=== PATIENT | female | born 1980 | race Caucasian/White ===

== ENCOUNTER 2016-08-21 15:21 | Emergency (ER) | payer SELFPAY ==
[2016-08-21] MEDS ORDERED: ASPIRIN 81 MG CHEW TABLET As Ordered ONE (16:12)
[2016-08-21 16:22] LABS: BASO % 0.4 % (0.0-1.0); EOS # 0.2 K/mm3 (0.0-0.50); EOS % 1.9 % (0.0-3.0); LARGE UNSTAINED CELL # 0.1 K/mm3 (0.0-0.4); LARGE UNSTAINED CELL % 0.9 % (0.0-4.0); LYMPH # 1.5 K/mm3 (1.5-4.5); LYMPH % 14.8 % (24.0-44.0); MEAN CORPUSCULAR HEMOGLOBIN 31.1 pg (27.0-33.0); MEAN CORPUSCULAR VOLUME 94.2 fl (80.0-96.0); MONO # 0.4 K/mm3 (0.0-0.8); MONO % 4.2 % (0.0-5.0); NEUTROPHILS # 7.4 K/mm3 (1.8-7.7); NEUTROPHILS % 77.9 % (36.0-66.0); PLATELET COUNT, AUTOMATED 357 k/mm3 (150-450); RED CELL DISTRIBUTION WIDTH 12.4 % (11.5-14.5); WHITE BLOOD COUNT 9.5 K/mm3 (4.0-10.0)
[2016-08-21 16:29] LABS: ANION GAP 7 MEQ/L (8-16); BLOOD UREA NITROGEN 17 MG/DL (7-18); CALCIUM LEVEL 8.9 MG/DL (8.5-10.1); CARBON DIOXIDE LEVEL 27 MEQ/L (21-32); CHLORIDE LEVEL 106 MEQ/L (98-107); CREATININE FOR GFR 0.87 MG/DL (0.55-1.02); GLOMERULAR FILTRATION RATE > 60.0 (>60); GLUCOSE, FASTING 139 MG/DL (70-105); POTASSIUM SERUM 3.6 MEQ/L (3.5-5.1); SODIUM LEVEL 140 MEQ/L (136-145)
--- NOTE | 2016-08-21 16:37 | REP ---
Portable chest x-ray: Single view. History: Chest pain. Findings: The lungs are well inflated and clear. Pleural angles are sharp. Cardiomediastinal silhouette is unremarkable. EKG monitoring electrodes overlie the chest. No bony abnormality is seen. Impression: Negative portable chest x-ray. Signed by Emiliano Amador MD 08/21/2016 04:58 P
[2016-08-21] MEDS ORDERED: methylPREDNISolone INJ 125 MG/2 ML VIAL (J2930) As Ordered ONE ×3 (17:43→17:49)
[2016-08-21] MEDS ORDERED: ONDANSETRON 4MG/2ML VIAL (J2405) As Ordered ONE (17:43)
[2016-08-21] MEDS ORDERED: diphenhydrAMINE INJ 50MG/ML VIAL (J1200) As Ordered ONE (17:43)
[2016-08-21] MEDS ORDERED: FAMOTIDINE INJ 20MG/2ML VIAL (S0028) As Ordered ONE (17:44)
[2016-08-21] MEDS ORDERED: FAMOTIDINE/NS 20 MG/50 ML BAG (S0028) As Ordered ONE (17:44)
--- NOTE | 2016-08-21 21:33 | ECGEPIP ---
Stationary ECG Study [facility] - ED Test Date: 2016-08-21 Pat Name: YENNY ESCUDERO Department: Room: - Gender: F Youth Program Director: ct : 1980 Requested By: CRICKET Goodwin Order Number: [id number] Reading MD: Geovanna Madera Measurements Intervals [place] Rate: 86 P: 66 TN: 154 QRS: 63 QRSD: 82 T: 20 QT: 345 QTc: 413 Interpretive Statements SINUS RHYTHM NONSPECIFIC T-WAVE ABNORMALITY NO PRIOR FOR COMPARISON Electronically Signed On 08-21-2016 21:33:09 EST by Geovanna Madera
--- NOTE | 2016-08-21 21:40 | ECGEPIP ---
Stationary ECG Study [facility] - ED Test Date: 2016-08-21 Pat Name: YENNY ESCUDERO Department: Room: - Gender: F Well Digger: neal : 1980 Requested By: CRICKET Goodwin Order Number: [id number] Reading MD: Geovanna Madera Measurements Intervals [place] Rate: 72 P: 78 MN: 176 QRS: 70 QRSD: 77 T: 46 QT: 364 QTc: 400 Interpretive Statements SINUS RHYTHM NSTTW ABNORMALITY DECREASED RATE 15:51 Electronically Signed On 08-21-2016 21:40:46 EST by Geovanna Madera
--- NOTE | 2016-08-21 22:24 | EDDOCDS ---
Nurse's Notes [facility] Name: Yenny Escudero Age: 36 yrs Sex: Female : 1980 Arrival Date: 08/21/2016 Time: 15:21 Bed 14 Private MD: Diagnosis: Chest pain, unspecified-possible allergic reaction Presentation: 08/21 15:26 Presenting complaint: Patient states: Burning to mid chest up into throat starting ld5 around 1400. Walked to sink to get a drink of water and felt like she was going to pass out. Pain started to become sharp and had numbness to bilateral arms. Pt reports experiencing some "fluttering" to heart for last 2 weeks. Pt thought it could be due to attempting to quit smoking so didn't seek evaluation until now. Suicide/Homicide risk assessment- the patient denies having any suicidal and/or homicidal ideations and does not present with any other emotional, behavioral or mental health complaints. Status: Patient is not a retail service technician or dependent. Transition of care: patient was not received from another setting of care. Care prior to arrival: Glucose check. 168 Oxygen administered by EMS. 15:26 Acuity: ANJEL Level 3 ld5 15:26 Method Of Arrival: Ambulance ld5 15:31 Adult Sepsis Screening: The patient does not have new or worsening altered mentation. ld5 Patient's respiratory rate is less than 22. Systolic blood pressure is greater than 100. Patient has a qSOFA score of 0- Negative Sepsis Screen. Triage Assessment: 15:28 General: Appears in no apparent distress, Behavior is cooperative. Pain: Location: head ld5 Pain currently is 5 out of 10 on a pain scale. HIV screening NA for this visit Offered previously. Neurological: Level of Consciousness is awake, alert, obeys commands, Reports numbness to arms. Respiratory: Onset: The symptoms/episode began/occurred 1400 today, Reports shortness of breath at rest on exertion. GI: Reports episodes of nausea for last 2 weeks. TROUBLE LOCATOR TEST DESK: 15:33 3, Full Term 2, Premature 1, 0, Living 3, LMP 08/19/2016 ld5 Historical: - Allergies: no known allergies; - Home Meds: 1. none - PMHx: none; - PSHx: none; - Social history: Smoking status: Patient uses tobacco products, light tobacco smoker. No barriers to communication noted, The patient speaks fluent Danish, Speaks appropriately for age. - Family history: Not pertinent. - : The pt / caregiver states he / she is not on anticoagulants. Home medication list is obtained from the patient. - Exposure Risk Screening:: None identified. Screenin:06 Screening information is obtained from the patient. Fall risk: No risks identified. [facility] Assistance ADL's: requires no assistance with activities of daily living. Abuse/DV Screen: The patient / caregiver reports he/she is: not in a situation that causes fear, pain or injury. Nutritional screening: No deficits noted. Advance Directives: There is no active DNR order. home support is adequate. Assessment: 16:06 General: Appears in no apparent distress, comfortable, Behavior is appropriate for age, [facility] cooperative, pleasant. Pain: Location: right arm and left arm and head Pain currently is 4 out of 10 on a pain scale. Neurological: Level of Consciousness is awake, alert, Oriented to person, place, time. Cardiovascular: Chest pain is denied. Respiratory: Airway is patent Respiratory effort is even, unlabored, Respiratory pattern is regular, symmetrical, Breath sounds are clear bilaterally. Derm: Skin is pink, warm & dry. 16:43 General: Appears in no apparent distress. Neurological: Level of Consciousness is ld5 awake, alert. Respiratory: Airway is patent Respiratory effort is even, unlabored. 17:45 General: Appears in no apparent distress, comfortable, Behavior is appropriate for age, [facility] cooperative, pleasant, ambulates to bathroom with steady gait and no assist required, denies further needs at present. 18:19 General: medications provided, family at bedside, pleasant and cooperative, no visible [facility] distress. 19:30 General: IV infusing without difficulty, cooperative with redraws and EKG, family at [facility] bedside, denies further needs at present. 20:28 General: Appears in no apparent distress, comfortable, Behavior is appropriate for age, [facility] cooperative, denies pain at this time, states continues to feel a little light headed, states 'maybe because I'm just tired of laying here'. Awaiting test results. 21:45 General: Appears in no apparent distress, comfortable, Behavior is appropriate for age, [facility] cooperative, awaiting discharge. 22:18 General: Appears Behavior is patient denies pain or discomfort at this time, reviewed [facility] discharge instructions, encouraged and answered questions, declines offer of further assistance. Vital Signs: 15:30 BP 140 / 89; Pulse 107; Resp 20; Temp 97.5(TE); Pulse Ox 100% on 2 lpm NC; Weight 70.31 dem1 kg; Height 5 ft. 2 in. (157.48 cm); Pain 5/10; 15:47 Pulse 86 MON; Pulse Ox 97% ; cjh 15:48 BP 132 / 81 (auto/); cjh 15:59 Pulse 96 MON; Pulse Ox 95% ; cjh 15:59 BP 134 / 83 (auto/); cjh 16:16 BP 146 / 71 (auto/); ld5 16:46 Pulse 78 MON; Pulse Ox 97% ; cjh 16:46 BP 122 / 71 (auto/); cjh 17:49 BP 114 / 62 Supine; Pulse 74; ld5 17:49 BP 120 / 76 Sitting; Pulse 82; ld5 17:49 BP 138 / 80 Standing; Pulse 87; ld5 18:15 Pulse 74 MON; Pulse Ox 99% ; cjh 18:15 BP 127 / 73; Pulse 76; Resp 16; Temp 97.1; Pulse Ox 96% ; Pain 0/10; cjh 18:16 BP 119 / 66 (auto/); cjh 18:45 Pulse 74 MON; Pulse Ox 99% ; cjh 18:46 BP 121 / 67 (auto/); cjh 19:15 Pulse 74 MON; Pulse Ox 97% ; cjh 19:16 BP 128 / 75 (auto/); cjh 19:45 Pulse 64 MON; Pulse Ox 97% ; cjh 19:46 BP 132 / 77 (auto/); cjh 20:15 Pulse 64 MON; Pulse Ox 97% ; cjh 20:16 BP 133 / 80 (auto/); cjh 20:46 Pulse 70 MON; Pulse Ox 96% ; cjh 20:46 BP 127 / 76 (auto/); cjh 21:15 Pulse 70 MON; Pulse Ox 96% ; cjh 21:16 BP 124 / 70 (auto/); cjh 21:46 Pulse 74 MON; Pulse Ox 96% ; cjh 21:46 BP 125 / 69 (auto/); cjh 21:48 Pulse 72 MON; Pulse Ox 97% ; cjh 22:05 BP 121 / 73 (auto/); cj 15:30 Body Mass Index 28.35 (70.31 kg, 157.48 cm) [facility] Vitals: 15:30 Log In Time N/A - ambulance arrival. [facility] ED Course: 15:22 Patient visited by Josi Emanuel, Technology Trainer. lbd 15:22 Patient moved to Waiting lbd 15:22 Patient moved to 14 lbd 15:28 Maria Guadalupe Dumont MD is Attending Physician. fg 15:28 Triage Initiated ld5 15:31 Patient visited by Destiny Cochran. dem1 15:31 Pt greeted and oriented to ED. Patient advised of names of staff involved in care, [facility] location of call [place], wait times and NPO status. Patient has correct armband on for positive identification. Placed in gown. Bed in low position. Side rails up X2. roof slater on. Pulse ox on. NIBP on. 15:35 Patient visited by Payal Patino RN. ld5 15:55 EKG done. (by ED staff). Reviewed by Maria Guadalupe Dumont MD. ct3 15:56 Patient visited by Kasie Rasheed PCA. ct3 16:01 Patient visited by Maria Guadalupe Dumont MD. fg 16:06 The patient / caregiver is instructed regarding the plan of care and ED course. cjh 16:06 Inserted saline lock: 20 gauge in left antecubital area and blood collected. [facility] 16:39 [facility] Payment Agreement was scanned into [facility] and attached to record. gjb 16:45 Patient visited by Payal Patino RN. ld5 16:46 portable chest Returned. EDMS 17:46 Patient visited by Maria Guadalupe Dumont MD. fg 18:15 Discontinued lock intact, bleeding controlled, pressure dressing applied, No cj redness/swelling at site. No procedures done that require assistance. 18:20 Patient visited by Iliana Mcnulty,CARISSA. cj 18:57 Patient visited by Iliana Mcnulty,CARISSA. cj 19:29 Patient visited by Cornelio Gruber PCA. jmv 19:29 EKG done. (by ED staff). Reviewed by Gerry Pastrana DO. jmv 20:15 Attending Physician role handed off by Maria Guadalupe Dumont MD mm11 20:15 Gerry Pastrana DO is Attending Physician. mm11 20:15 Patient visited by Gerry Pastrana DO. mm11 21:17 Patient visited by Gerry Pastrana DO. mm11 22:00 [facility] is Referral Physician. mm11 22:02 Soy Celeste MD is Referral Physician. mm11 22:17 EKG-ADULT Returned. EDMS 22:17 ECG WITH READING ER PHYS Returned. EDMS Administered Medications: 16:18 Drug: Aspirin 324 mg [aspirin 81 mg chewable tablet (4 tabs)] Route: PO; [facility] 18:15 Drug: NS 0.9% 1000 ml Route: IV; Rate: bolus; Site: left antecubital; [facility] 18:17 Drug: Ondansetron 4 mg Route: IVP; Site: left antecubital; [facility] 18:17 Drug: Solu-MEDROL 125 mg [Solu-Medrol 500 mg intravenous solution (125 mg)] Route: IVP; cjh Site: left antecubital; 18:17 Drug: Famotidine 20 mg [famotidine 10 mg/mL intravenous solution] Route: IVPB; Infused cj Over: 30 mins; Site: left antecubital; 18:18 Drug: diphenhydrAMINE 25 mg [diphenhydramine 50 mg/mL injection solution (0.5 mL)] cj Route: IVP; Site: left antecubital; Order Results: Lab Order: Basic Metabolic Profile; SPEC'M 08/21/16 15:49 Test: GLUCOSE, FASTING; Value: 139; Range: 70-105; Abnormal: Above high normal; Units: MG/DL; Status: F Test: BLOOD UREA NITROGEN; Value: 17; Range: 7-18; Units: MG/DL; Status: F Test: CREATININE FOR GFR; Value: 0.87; Range: 0.55-1.02; Units: MG/DL; Status: F Test: GLOMERULAR FILTRATION RATE; Value: > 60.0; Range: >60; Status: F Test: SODIUM LEVEL; Value: 140; Range: 136-145; Units: MEQ/L; Status: F Test: POTASSIUM SERUM; Value: 3.6; Range: 3.5-5.1; Units: MEQ/L; Status: F Test: CHLORIDE LEVEL; Value: 106; Range: 98-107; Units: MEQ/L; Status: F Test: CARBON DIOXIDE LEVEL; Value: 27; Range: 21-32; Units: MEQ/L; Status: F Test: ANION GAP; Value: 7; Range: 8-16; Abnormal: Below low normal; Units: MEQ/L; Status: F Test: CALCIUM LEVEL; Value: 8.9; Range: 8.5-10.1; Units: MG/DL; Status: F Test Note: ; Units are mL/min/1.73 m2 Chronic Kidney Disease Staging per NKF: Stage I & II GFR >=60 Normal to Mildly Decreased Stage III GFR 30-59 Moderately Decreased Stage IV GFR 15-29 Severely Decreased Stage V GFR <15 Very Little GFR Left ESRD GFR <15 on RV REPAIR TECHNICIAN Lab Order: CBC with Diff; SPEC'M 08/21/16 15:49 Test: WHITE BLOOD COUNT; Value: 9.5; Range: 4.0-10.0; Units: K/mm3; Status: F Test: RED BLOOD COUNT; Value: 4.31; Range: 4.00-5.40; Units: M/mm3; Status: F Test: HEMOGLOBIN; Value: 13.4; Range: 12.0-16.0; Units: g/dl; Status: F Test: HEMATOCRIT; Value: 40.7; Range: 36.0-47.0; Units: %; Status: F Test: MEAN CORPUSCULAR VOLUME; Value: 94.2; Range: 80.0-96.0; Units: fl; Status: F Test: MEAN CORPUSCULAR HEMOGLOBIN; Value: 31.1; Range: 27.0-33.0; Units: pg; Status: F Test: MEAN CORPUSCULAR HGB CONC; Value: 33.0; Range: 32.0-36.5; Units: g/dl; Status: F Test: RED CELL DISTRIBUTION WIDTH; Value: 12.4; Range: 11.5-14.5; Units: %; Status: F Test: PLATELET COUNT, AUTOMATED; Value: 357; Range: 150-450; Units: k/mm3; Status: F Test: NEUTROPHILS %; Value: 77.9; Range: 36.0-66.0; Abnormal: Above high normal; Units: %; Status: F Test: LYMPH %; Value: 14.8; Range: 24.0-44.0; Abnormal: Below low normal; Units: %; Status: F Test: MONO %; Value: 4.2; Range: 0.0-5.0; Units: %; Status: F Test: EOS %; Value: 1.9; Range: 0.0-3.0; Units: %; Status: F Test: BASO %; Value: 0.4; Range: 0.0-1.0; Units: %; Status: F Test: LARGE UNSTAINED CELL %; Value: 0.9; Range: 0.0-4.0; Units: %; Status: F Test: NEUTROPHILS #; Value: 7.4; Range: 1.8-7.7; Units: K/mm3; Status: F Test: LYMPH #; Value: 1.5; Range: 1.5-4.5; Units: K/mm3; Status: F Test: MONO #; Value: 0.4; Range: 0.0-0.8; Units: K/mm3; Status: F Test: EOS #; Value: 0.2; Range: 0.0-0.50; Units: K/mm3; Status: F Test: BASO #; Value: 0.0; Range: 0.0-0.2; Units: K/mm3; Status: F Test: LARGE UNSTAINED CELL #; Value: 0.1; Range: 0.0-0.4; Units: K/mm3; Status: F Lab Order: Cardiac Injury Profile; SPEC'M 08/21/16 15:49 Test: CPK CREATINE PHOSPHOKINASE; Value: 131; Range: 26-192; Units: U/L; Status: F Test: CK-MB VALUE MASS; Value: 1.4; Range: 0.0-3.6; Units: NG/ML; Status: F Test: MB/CK RELATIVE INDEX; Value: 1.06; Range: < OR =4; Status: F Test Note: ; DIAGNOSIS CRITERIA MMB ng/ml Relative Index (RI) NON-AMI < or = 5 N/A BOWEN ZONE > 5 < or = 4 AMI > 5 > 4 Lab Order: Troponin; SPEC'M 08/21/16 15:49 Test: TROPONIN I; Value: < 0.02; Range: < 0.10; Units: NG/ML; Status: F Test Note: ; Troponin I Reference Interval for Siemens [place] LOCI: 99th Percentile= 0.00-0.045 ng/ml Risk Stratification: <= 0.10 ng/ml Decreased Risk for Adverse Clinical Events. 0.10-1.50 ng/ml Increased Risk for Adverse Clinical Events. Evaluation of additional criterion and/or repeat testing in 2-6 hours is suggested to rule out myocardial damage. >= 1.50 ng/ml Indicative of Myocardial Injury. Lab Order: Cardiac Marker Panel: 1900; SPEC'M 08/21/16 19:20 Test: CPK CREATINE PHOSPHOKINASE; Value: 115; Range: 26-192; Units: U/L; Status: F Test: CK-MB VALUE MASS; Value: 1.5; Range: 0.0-3.6; Units: NG/ML; Status: F Test: MB/CK RELATIVE INDEX; Value: 1.30; Range: < OR =4; Status: F Test: TROPONIN I; Value: < 0.02; Range: < 0.10; Units: NG/ML; Status: F Test Note: ; DIAGNOSIS CRITERIA MMB ng/ml Relative Index (RI) NON-AMI < or = 5 N/A BOWEN ZONE > 5 < or = 4 AMI > 5 > 4 Radiology Order: EKG-ADULT Test: EKG-ADULT REASON FOR EXAMINATION: Chest Pain; Stationary ECG Study; [facility] - ED; ; Test Date: 2016-08-21; Pat Name: YENNY ESCUDERO Department:; Room: -; Gender: F Special Education Coordinator: ct; : 1980 Requested By: MARIA GUADALUPE Goodwin; Order Number: [id number] Reading MD: Geovanna Madera; Measurements; Intervals [place]; Rate: 86 P: 66; AK: 154 QRS: 63; QRSD: 82 T: 20; QT: 345; QTc: 413; Interpretive Statements; SINUS RHYTHM; NONSPECIFIC T-WAVE ABNORMALITY; NO PRIOR FOR COMPARISON; Electronically Signed On 08-21-2016 21:33:09 EST by Geovanna Madera; Radiology Order: portable chest Test: portable chest REASON FOR EXAMINATION: Chest Pain; Portable chest x-ray: Single view.; ; History: Chest pain.; ; Findings: The lungs are well inflated and clear. Pleural angles are sharp.; Cardiomediastinal silhouette is unremarkable. EKG monitoring electrodes overlie; the chest. No bony abnormality is seen.; ; Impression:; ; Negative portable chest x-ray.; ; ; Signed by; Emiliano Amador MD 08/21/2016 04:58 P; Radiology Order: ECG WITH READING ER PHYS Test: ECG WITH READING ER PHYS REASON FOR EXAMINATION: SHORTNESS OF BREATH(REPEAT EKG AT 1900); Stationary ECG Study; [facility] - ED; ; Test Date: 2016-08-21; Pat Name: YENNY ESCUDERO Department:; Room: -; Gender: F Special Education Coordinator: neal; : 1980 Requested By: MARIA GUADALUPE Goodwin; Order Number: [id number] Reading MD: Geovanna Madera; Measurements; Intervals [place]; Rate: 72 P: 78; AK: 176 QRS: 70; QRSD: 77 T: 46; QT: 364; QTc: 400; Interpretive Statements; SINUS RHYTHM; NSTTW ABNORMALITY; DECREASED RATE 15:51; Electronically Signed On 08-21-2016 21:40:46 EST by Geovanna Madera; Outcome: 18:15 Discharge Assessment: Patient awake, alert and oriented x 3. No cognitive and/or [facility] functional deficits noted. Patient verbalized understanding of disposition instructions. patient administered narcotics - no. The following High Risk Discharge criteria are identified: None. Discharged to home ambulatory, with family. Condition: good Condition: stable Condition: improved. Discharge instructions given to patient, Instructed on discharge instructions, follow up and referral plans. medication usage, Demonstrated understanding of instructions, medications, Pt was receptive of discharge instructions/ teaching. Prescriptions given X 1. No special radiology studies were completed. Property :Personal belongings accompany Pt. 22:01 Discharge ordered by Provider. mm11 22:23 Patient left the ED. [facility] Signatures: Dispatcher [employer] EDMS Josi Emanuel, Technology Trainer Unit Gerry Powell DO DO mm11 Payal Patino,RN RN ld5 Kasie Rasheed, INFORMATION SYSTEMS SECURITY SPECIALIST INFORMATION SYSTEMS SECURITY SPECIALIST ct3 Destiny Cochran dem1 Iliana Mcnulty RN RN [facility] Maria Guadalupe Dumont MD MD fg Beck, Gabriela gjb Vega, Jose, INFORMATION SYSTEMS SECURITY SPECIALIST INFORMATION SYSTEMS SECURITY SPECIALIST jmv Corrections: (The following items were deleted from the chart) 15:33 15:26 Presenting complaint: Patient states: Burning to mid chest up into throat ld5 starting around 1400. Walked to sink to get a drink of water and felt like she was going to pass out. Pain started to become sharp and had numbness to bilateral arms ld5 18:19 17:45 General: Appears in no apparent distress, comfortable, Behavior is appropriate [facility] for age, cooperative, pleasant, ambulates to bathroom with steady gait and no assist required, medications provided, denies further needs at present. [facility] 22:23 18:15 Discharge Assessment: Patient awake, alert and oriented x 3. No cognitive and/or [facility] functional deficits noted. Patient verbalized understanding of disposition instructions. patient administered narcotics - yes. Pt provided with safe discharge [facility] MTDD
--- NOTE | 2016-08-21 22:24 | EDDOCDS ---
Physician Documentation [facility] Name: Gwen Calles Age: 36 yrs Sex: Female : 1980 Arrival Date: 08/21/2016 Time: 15:21 Bed 14 Private MD: Disposition: 08/21/16 22:01 Discharged to Home/Self Care. Impression: Chest pain, unspecified - possible allergic reaction. - Condition is Stable. - Discharge Instructions: Panic Attacks, Chest Wall Pain, Food Allergy, Panic Attacks, Cwen-yo-Hyct, Food Allergy, Gffr-os-Cmry, Nonspecific Chest Pain. - Prescriptions for Prednisone 20 mg Oral Tablet - take 2 tablet by ORAL route once daily for 5 days; 10 tablet. - Medication Reconciliation, Local Pharmacy Hours form. - [facility] ; When: Call to arrange an appointment; Reason: Continuance of care. Follow up: Soy Celeste MD; When: Call to arrange an appointment; Reason: To establish care. - Problem is an acute exacerbation. - Symptoms are resolved. Historical: - Allergies: no known allergies; - Home Meds: 1. none - PMHx: none; - PSHx: none; - Social history: Smoking status: Patient uses tobacco products, light tobacco smoker. No barriers to communication noted, The patient speaks fluent Wallisian, Speaks appropriately for age. - Family history: Not pertinent. - : The pt / caregiver states he / she is not on anticoagulants. Home medication list is obtained from the patient. - Exposure Risk Screening:: None identified. BAG SEWER: 08/21 15:33 3, Full Term 2, Premature 1, 0, Living 3, LMP 08/19/2016 ld5 Vital Signs: 15:30 BP 140 / 89; Pulse 107; Resp 20; Temp 97.5(TE); Pulse Ox 100% on 2 lpm NC; Weight 70.31 dem1 kg / 155.01 lbs; Height 5 ft. 2 in. (157.48 cm); Pain 5/10; 15:47 Pulse 86 MON; Pulse Ox 97% ; cjh 15:48 BP 132 / 81 (auto/); cjh 15:59 Pulse 96 MON; Pulse Ox 95% ; cjh 15:59 BP 134 / 83 (auto/); cjh 16:16 BP 146 / 71 (auto/); ld5 16:46 Pulse 78 MON; Pulse Ox 97% ; cjh 16:46 BP 122 / 71 (auto/); cjh 17:49 BP 114 / 62 Supine; Pulse 74; ld5 17:49 BP 120 / 76 Sitting; Pulse 82; ld5 17:49 BP 138 / 80 Standing; Pulse 87; ld5 18:15 Pulse 74 MON; Pulse Ox 99% ; cjh 18:15 BP 127 / 73; Pulse 76; Resp 16; Temp 97.1; Pulse Ox 96% ; Pain 0/10; cjh 18:16 BP 119 / 66 (auto/); cjh 18:45 Pulse 74 MON; Pulse Ox 99% ; cjh 18:46 BP 121 / 67 (auto/); cjh 19:15 Pulse 74 MON; Pulse Ox 97% ; cjh 19:16 BP 128 / 75 (auto/); cjh 19:45 Pulse 64 MON; Pulse Ox 97% ; cjh 19:46 BP 132 / 77 (auto/); cjh 20:15 Pulse 64 MON; Pulse Ox 97% ; cjh 20:16 BP 133 / 80 (auto/); cjh 20:46 Pulse 70 MON; Pulse Ox 96% ; cjh 20:46 BP 127 / 76 (auto/); cjh 21:15 Pulse 70 MON; Pulse Ox 96% ; cjh 21:16 BP 124 / 70 (auto/); cjh 21:46 Pulse 74 MON; Pulse Ox 96% ; cjh 21:46 BP 125 / 69 (auto/); cjh 21:48 Pulse 72 MON; Pulse Ox 97% ; cjh 22:05 BP 121 / 73 (auto/); cjh 15:30 Body Mass Index 28.35 (70.31 kg, 157.48 cm) dem1 MDM: 15:36 ECG WITH READING ER PHYS+CARDIAG ordered. EDMS 16:10 Aspirin Chewable Tablet 324 mg PO once ordered. fg 16:10 Plant Buyer/Pulse Ox/q 30 min VS ordered. fg 16:10 IV Saline Lock ordered. fg 16:10 Rhythm Strip to chart ordered. fg 16:10 Undress patient appropriately for examination ordered. fg 16:12 portable chest Ordered. EDMS 16:12 Basic Metabolic Profile Ordered. EDMS 16:13 CBC with Diff Ordered. EDMS 16:13 Cardiac Injury Profile Ordered. EDMS 16:13 Troponin Ordered. EDMS 16:32 Financial registration complete. gjb 16:39 [facility] Payment Agreement was scanned into [employer] and attached to record. gjb 17:34 Repeat EKG (put time details section) ordered. fg 17:34 Cardiac Marker Panel: 1900 Ordered. EDMS 17:34 Troponin: 1900 Ordered. EDMS 17:37 NS 0.9% 1000 ml IV at bolus once ordered. fg 17:37 Strep Screen, Nursing ordered. fg 17:37 Ondansetron 4 mg IVP once ordered. fg 17:37 Orthostatic VS ordered. fg 17:37 Solu-MEDROL 125 mg IVP once ordered. fg 17:37 Famotidine 20 mg IVPB once over 30 mins; dilute in 50mL of NS ordered. fg 17:37 diphenhydrAMINE 25 mg IVP once ordered. fg 17:50 Repeat EKG (put time details section) complete. lbd 18:03 ECG WITH READING ER PHYS ordered. EDMS 18:18 GATS (NEGATIVE STREP SCREEN) Ordered. EDMS 21:16 Basic Metabolic Profile Reviewed. mm11 21:16 CBC with Diff Reviewed. mm11 21:16 Cardiac Injury Profile Reviewed. mm11 21:16 Troponin Reviewed. mm11 21:16 Cardiac Marker Panel: 1900 Reviewed. mm11 21:16 portable chest Reviewed. mm11 Administered Medications: 16:18 Drug: Aspirin 324 mg [aspirin 81 mg chewable tablet (4 tabs)] Route: PO; [facility] 18:15 Drug: NS 0.9% 1000 ml Route: IV; Rate: bolus; Site: left antecubital; [facility] 18:17 Drug: Ondansetron 4 mg Route: IVP; Site: left antecubital; [facility] 18:17 Drug: Solu-MEDROL 125 mg [Solu-Medrol 500 mg intravenous solution (125 mg)] Route: IVP; [facility] Site: left antecubital; 18:17 Drug: Famotidine 20 mg [famotidine 10 mg/mL intravenous solution] Route: IVPB; Infused cj Over: 30 mins; Site: left antecubital; 18:18 Drug: diphenhydrAMINE 25 mg [diphenhydramine 50 mg/mL injection solution (0.5 mL)] [facility] Route: IVP; Site: left antecubital; Signatures: Dispatcher [employer] EDMS Josi Emanuel, Transcription Coordinator Unit lbd Pastrana Gerry, DO mm11 Payal Patino,RN RN ld5 Iliana Mcnulty RN RN álvaro Maria Guadalupe Dumont MD MD fg Beck, Gabriela gjb The chart was reviewed and I authenticate all verbal orders and agree with the evaluation and treatment provided.Attachments: 16:39 [facility] Payment Agreement stephanie MTDD
--- NOTE | 2016-08-23 23:25 | EDDOCDS ---
Nurse's Notes [facility] Name: Yenny Escudero Age: 36 yrs Sex: Female : 1980 Arrival Date: 08/21/2016 Time: 15:21 Bed 14 Private MD: Diagnosis: Chest pain, unspecified-possible allergic reaction Presentation: 08/21 15:26 Presenting complaint: Patient states: Burning to mid chest up into throat starting ld5 around 1400. Walked to sink to get a drink of water and felt like she was going to pass out. Pain started to become sharp and had numbness to bilateral arms. Pt reports experiencing some "fluttering" to heart for last 2 weeks. Pt thought it could be due to attempting to quit smoking so didn't seek evaluation until now. Suicide/Homicide risk assessment- the patient denies having any suicidal and/or homicidal ideations and does not present with any other emotional, behavioral or mental health complaints. Status: Patient is not a support services coordinator or dependent. Transition of care: patient was not received from another setting of care. Care prior to arrival: Glucose check. 168 Oxygen administered by EMS. 15:26 Acuity: ANJEL Level 3 ld5 15:26 Method Of Arrival: Ambulance ld5 15:31 Adult Sepsis Screening: The patient does not have new or worsening altered mentation. ld5 Patient's respiratory rate is less than 22. Systolic blood pressure is greater than 100. Patient has a qSOFA score of 0- Negative Sepsis Screen. Triage Assessment: 15:28 General: Appears in no apparent distress, Behavior is cooperative. Pain: Location: head ld5 Pain currently is 5 out of 10 on a pain scale. HIV screening NA for this visit Offered previously. Neurological: Level of Consciousness is awake, alert, obeys commands, Reports numbness to arms. Respiratory: Onset: The symptoms/episode began/occurred 1400 today, Reports shortness of breath at rest on exertion. GI: Reports episodes of nausea for last 2 weeks. TURN SEWER: 15:33 3, Full Term 2, Premature 1, 0, Living 3, LMP 08/19/2016 ld5 Historical: - Allergies: no known allergies; - Home Meds: 1. none - PMHx: none; - PSHx: none; - Social history: Smoking status: Patient uses tobacco products, light tobacco smoker. No barriers to communication noted, The patient speaks fluent Swedish, Speaks appropriately for age. - Family history: Not pertinent. - : The pt / caregiver states he / she is not on anticoagulants. Home medication list is obtained from the patient. - Exposure Risk Screening:: None identified. Screenin:06 Screening information is obtained from the patient. Fall risk: No risks identified. [facility] Assistance ADL's: requires no assistance with activities of daily living. Abuse/DV Screen: The patient / caregiver reports he/she is: not in a situation that causes fear, pain or injury. Nutritional screening: No deficits noted. Advance Directives: There is no active DNR order. home support is adequate. Assessment: 16:06 General: Appears in no apparent distress, comfortable, Behavior is appropriate for age, [facility] cooperative, pleasant. Pain: Location: right arm and left arm and head Pain currently is 4 out of 10 on a pain scale. Neurological: Level of Consciousness is awake, alert, Oriented to person, place, time. Cardiovascular: Chest pain is denied. Respiratory: Airway is patent Respiratory effort is even, unlabored, Respiratory pattern is regular, symmetrical, Breath sounds are clear bilaterally. Derm: Skin is pink, warm & dry. 16:43 General: Appears in no apparent distress. Neurological: Level of Consciousness is ld5 awake, alert. Respiratory: Airway is patent Respiratory effort is even, unlabored. 17:45 General: Appears in no apparent distress, comfortable, Behavior is appropriate for age, [facility] cooperative, pleasant, ambulates to bathroom with steady gait and no assist required, denies further needs at present. 18:19 General: medications provided, family at bedside, pleasant and cooperative, no visible [facility] distress. 19:30 General: IV infusing without difficulty, cooperative with redraws and EKG, family at [facility] bedside, denies further needs at present. 20:28 General: Appears in no apparent distress, comfortable, Behavior is appropriate for age, [facility] cooperative, denies pain at this time, states continues to feel a little light headed, states 'maybe because I'm just tired of laying here'. Awaiting test results. 21:45 General: Appears in no apparent distress, comfortable, Behavior is appropriate for age, [facility] cooperative, awaiting discharge. 22:18 General: Appears Behavior is patient denies pain or discomfort at this time, reviewed [facility] discharge instructions, encouraged and answered questions, declines offer of further assistance. Vital Signs: 15:30 BP 140 / 89; Pulse 107; Resp 20; Temp 97.5(TE); Pulse Ox 100% on 2 lpm NC; Weight 70.31 dem1 kg; Height 5 ft. 2 in. (157.48 cm); Pain 5/10; 15:47 Pulse 86 MON; Pulse Ox 97% ; cjh 15:48 BP 132 / 81 (auto/); cjh 15:59 Pulse 96 MON; Pulse Ox 95% ; cjh 15:59 BP 134 / 83 (auto/); cjh 16:16 BP 146 / 71 (auto/); ld5 16:46 Pulse 78 MON; Pulse Ox 97% ; cjh 16:46 BP 122 / 71 (auto/); cjh 17:49 BP 114 / 62 Supine; Pulse 74; ld5 17:49 BP 120 / 76 Sitting; Pulse 82; ld5 17:49 BP 138 / 80 Standing; Pulse 87; ld5 18:15 Pulse 74 MON; Pulse Ox 99% ; cjh 18:15 BP 127 / 73; Pulse 76; Resp 16; Temp 97.1; Pulse Ox 96% ; Pain 0/10; cjh 18:16 BP 119 / 66 (auto/); cjh 18:45 Pulse 74 MON; Pulse Ox 99% ; cjh 18:46 BP 121 / 67 (auto/); cjh 19:15 Pulse 74 MON; Pulse Ox 97% ; cjh 19:16 BP 128 / 75 (auto/); cjh 19:45 Pulse 64 MON; Pulse Ox 97% ; cjh 19:46 BP 132 / 77 (auto/); cjh 20:15 Pulse 64 MON; Pulse Ox 97% ; cjh 20:16 BP 133 / 80 (auto/); cjh 20:46 Pulse 70 MON; Pulse Ox 96% ; cjh 20:46 BP 127 / 76 (auto/); cjh 21:15 Pulse 70 MON; Pulse Ox 96% ; cjh 21:16 BP 124 / 70 (auto/); cjh 21:46 Pulse 74 MON; Pulse Ox 96% ; cjh 21:46 BP 125 / 69 (auto/); cjh 21:48 Pulse 72 MON; Pulse Ox 97% ; cjh 22:05 BP 121 / 73 (auto/); cj 15:30 Body Mass Index 28.35 (70.31 kg, 157.48 cm) [facility] Vitals: 15:30 Log In Time N/A - ambulance arrival. [facility] ED Course: 15:22 Patient visited by Josi Emanuel, Bindery Helper. lbd 15:22 Patient moved to Waiting lbd 15:22 Patient moved to 14 lbd 15:28 Maria Guadalupe Dumont MD is Attending Physician. fg 15:28 Triage Initiated ld5 15:31 Patient visited by Destiny Cochran. dem1 15:31 Pt greeted and oriented to ED. Patient advised of names of staff involved in care, [facility] location of call co[place], wait times and NPO status. Patient has correct armband on for positive identification. Placed in gown. Bed in low position. Side rails up X2. stem setter on. Pulse ox on. NIBP on. 15:35 Patient visited by Payal Patino RN. ld5 15:55 EKG done. (by ED staff). Reviewed by Maria Guadalupe Dumont MD. ct3 15:56 Patient visited by Kasie Rasheed PCA. ct3 16:01 Patient visited by Maria Guadalupe Dumont MD. fg 16:06 The patient / caregiver is instructed regarding the plan of care and ED course. cjh 16:06 Inserted saline lock: 20 gauge in left antecubital area and blood collected. [facility] 16:39 [facility] Payment Agreement was scanned into [employer] and attached to record. gjb 16:45 Patient visited by Payal Patino RN. ld5 16:46 portable chest Returned. EDMS 17:46 Patient visited by Maria Guadalupe Dumont MD. fg 18:15 Discontinued lock intact, bleeding controlled, pressure dressing applied, No cj redness/swelling at site. No procedures done that require assistance. 18:20 Patient visited by Iliana Mcnulty,CARISSA. cj 18:57 Patient visited by Iliana Mcnulty,CARISSA. cj 19:29 Patient visited by Cornelio Gruber PCA. jmv 19:29 EKG done. (by ED staff). Reviewed by Gerry Pastrana DO. jmv 20:15 Attending Physician role handed off by Maria Guadalupe Dumont MD mm11 20:15 Gerry Pastrana DO is Attending Physician. mm11 20:15 Patient visited by Gerry Pastrana DO. mm11 21:17 Patient visited by Gerry Pastrana DO. mm11 22:00 [facility] is Referral Physician. mm11 22:02 Soy Celeste MD is Referral Physician. mm11 22:17 EKG-ADULT Returned. EDMS 22:17 ECG WITH READING ER PHYS Returned. EDMS 08/22 10:26 T-Sheet-- Draft Copy was scanned into [employer] and attached to record. gb 17:03 ECG/EKG was scanned into [employer] and attached to record. gb 17:35 PCR was scanned into [employer] and attached to record. Administered Medications: 08/21 16:18 Drug: Aspirin 324 mg [aspirin 81 mg chewable tablet (4 tabs)] Route: PO; [facility] 18:15 Drug: NS 0.9% 1000 ml Route: IV; Rate: bolus; Site: left antecubital; [facility] 18:17 Drug: Ondansetron 4 mg Route: IVP; Site: left antecubital; [facility] 18:17 Drug: Solu-MEDROL 125 mg [Solu-Medrol 500 mg intravenous solution (125 mg)] Route: IVP; [facility] Site: left antecubital; 18:17 Drug: Famotidine 20 mg [famotidine 10 mg/mL intravenous solution] Route: IVPB; Infused [facility] Over: 30 mins; Site: left antecubital; 18:18 Drug: diphenhydrAMINE 25 mg [diphenhydramine 50 mg/mL injection solution (0.5 mL)] [facility] Route: IVP; Site: left antecubital; Order Results: Lab Order: Basic Metabolic Profile; [facility] 08/21/16 15:49 Test: GLUCOSE, FASTING; Value: 139; Range: 70-105; Abnormal: Above high normal; Units: MG/DL; Status: F Test: BLOOD UREA NITROGEN; Value: 17; Range: 7-18; Units: MG/DL; Status: F Test: CREATININE FOR GFR; Value: 0.87; Range: 0.55-1.02; Units: MG/DL; Status: F Test: GLOMERULAR FILTRATION RATE; Value: > 60.0; Range: >60; Status: F Test: SODIUM LEVEL; Value: 140; Range: 136-145; Units: MEQ/L; Status: F Test: POTASSIUM SERUM; Value: 3.6; Range: 3.5-5.1; Units: MEQ/L; Status: F Test: CHLORIDE LEVEL; Value: 106; Range: 98-107; Units: MEQ/L; Status: F Test: CARBON DIOXIDE LEVEL; Value: 27; Range: 21-32; Units: MEQ/L; Status: F Test: ANION GAP; Value: 7; Range: 8-16; Abnormal: Below low normal; Units: MEQ/L; Status: F Test: CALCIUM LEVEL; Value: 8.9; Range: 8.5-10.1; Units: MG/DL; Status: F Test Note: ; Units are mL/min/1.73 m2 Chronic Kidney Disease Staging per NKF: Stage I & II GFR >=60 Normal to Mildly Decreased Stage III GFR 30-59 Moderately Decreased Stage IV GFR 15-29 Severely Decreased Stage V GFR <15 Very Little GFR Left ESRD GFR <15 on AUTOMOTIVE GENERAL MANAGER Lab Order: CBC with Diff; SPEC'M 08/21/16 15:49 Test: WHITE BLOOD COUNT; Value: 9.5; Range: 4.0-10.0; Units: K/mm3; Status: F Test: RED BLOOD COUNT; Value: 4.31; Range: 4.00-5.40; Units: M/mm3; Status: F Test: HEMOGLOBIN; Value: 13.4; Range: 12.0-16.0; Units: g/dl; Status: F Test: HEMATOCRIT; Value: 40.7; Range: 36.0-47.0; Units: %; Status: F Test: MEAN CORPUSCULAR VOLUME; Value: 94.2; Range: 80.0-96.0; Units: fl; Status: F Test: MEAN CORPUSCULAR HEMOGLOBIN; Value: 31.1; Range: 27.0-33.0; Units: pg; Status: F Test: MEAN CORPUSCULAR HGB CONC; Value: 33.0; Range: 32.0-36.5; Units: g/dl; Status: F Test: RED CELL DISTRIBUTION WIDTH; Value: 12.4; Range: 11.5-14.5; Units: %; Status: F Test: PLATELET COUNT, AUTOMATED; Value: 357; Range: 150-450; Units: k/mm3; Status: F Test: NEUTROPHILS %; Value: 77.9; Range: 36.0-66.0; Abnormal: Above high normal; Units: %; Status: F Test: LYMPH %; Value: 14.8; Range: 24.0-44.0; Abnormal: Below low normal; Units: %; Status: F Test: MONO %; Value: 4.2; Range: 0.0-5.0; Units: %; Status: F Test: EOS %; Value: 1.9; Range: 0.0-3.0; Units: %; Status: F Test: BASO %; Value: 0.4; Range: 0.0-1.0; Units: %; Status: F Test: LARGE UNSTAINED CELL %; Value: 0.9; Range: 0.0-4.0; Units: %; Status: F Test: NEUTROPHILS #; Value: 7.4; Range: 1.8-7.7; Units: K/mm3; Status: F Test: LYMPH #; Value: 1.5; Range: 1.5-4.5; Units: K/mm3; Status: F Test: MONO #; Value: 0.4; Range: 0.0-0.8; Units: K/mm3; Status: F Test: EOS #; Value: 0.2; Range: 0.0-0.50; Units: K/mm3; Status: F Test: BASO #; Value: 0.0; Range: 0.0-0.2; Units: K/mm3; Status: F Test: LARGE UNSTAINED CELL #; Value: 0.1; Range: 0.0-0.4; Units: K/mm3; Status: F Lab Order: Cardiac Injury Profile; SPEC'M 08/21/16 15:49 Test: CPK CREATINE PHOSPHOKINASE; Value: 131; Range: 26-192; Units: U/L; Status: F Test: CK-MB VALUE MASS; Value: 1.4; Range: 0.0-3.6; Units: NG/ML; Status: F Test: MB/CK RELATIVE INDEX; Value: 1.06; Range: < OR =4; Status: F Test Note: ; DIAGNOSIS CRITERIA MMB ng/ml Relative Index (RI) NON-AMI < or = 5 N/A BOWEN ZONE > 5 < or = 4 AMI > 5 > 4 Lab Order: Troponin; SPEC'M 08/21/16 15:49 Test: TROPONIN I; Value: < 0.02; Range: < 0.10; Units: NG/ML; Status: F Test Note: ; Troponin I Reference Interval for Siemens [place] LOCI: 99th Percentile= 0.00-0.045 ng/ml Risk Stratification: <= 0.10 ng/ml Decreased Risk for Adverse Clinical Events. 0.10-1.50 ng/ml Increased Risk for Adverse Clinical Events. Evaluation of additional criterion and/or repeat testing in 2-6 hours is suggested to rule out myocardial damage. >= 1.50 ng/ml Indicative of Myocardial Injury. Lab Order: Cardiac Marker Panel: 1900; SPEC'M 08/21/16 19:20 Test: CPK CREATINE PHOSPHOKINASE; Value: 115; Range: 26-192; Units: U/L; Status: F Test: CK-MB VALUE MASS; Value: 1.5; Range: 0.0-3.6; Units: NG/ML; Status: F Test: MB/CK RELATIVE INDEX; Value: 1.30; Range: < OR =4; Status: F Test: TROPONIN I; Value: < 0.02; Range: < 0.10; Units: NG/ML; Status: F Test Note: ; DIAGNOSIS CRITERIA MMB ng/ml Relative Index (RI) NON-AMI < or = 5 N/A BOWEN ZONE > 5 < or = 4 AMI > 5 > 4 Lab Order: GATS (NEGATIVE STREP SCREEN); SPEC'M 08/21/16 17:52 Test: GATS CULTURE (NEG STREP SCR); Value: GATS RESULT NEGATIVE FOR STREP PYOGENES (GROUP A); Status: F Test: GATS CULTURE (NEG STREP SCR); Value: <EXTERNAL COMMENT eCWMed> FULL REPORT IN LAB NOTES (eCW and Medent).; Status: F Radiology Order: EKG-ADULT Test: EKG-ADULT REASON FOR EXAMINATION: Chest Pain; Stationary ECG Study; [facility] - ED; ; Test Date: 2016-08-21; Pat Name: YENNY ESCUDERO Department:; Room: -; Gender: F [employer]: ct; : 1980 Requested By: MARIA GUADALUPE Goodwin; Order Number: [id number] Reading MD: Geovanna Madera; Measurements; Intervals [place]; Rate: 86 P: 66; AK: 154 QRS: 63; QRSD: 82 T: 20; QT: 345; QTc: 413; Interpretive Statements; SINUS RHYTHM; NONSPECIFIC T-WAVE ABNORMALITY; NO PRIOR FOR COMPARISON; Electronically Signed On 08-21-2016 21:33:09 EST by Geovanna Madera; Radiology Order: portable chest Test: portable chest REASON FOR EXAMINATION: Chest Pain; Portable chest x-ray: Single view.; ; History: Chest pain.; ; Findings: The lungs are well inflated and clear. Pleural angles are sharp.; Cardiomediastinal silhouette is unremarkable. EKG monitoring electrodes overlie; the chest. No bony abnormality is seen.; ; Impression:; ; Negative portable chest x-ray.; ; ; Signed by; Emiliano Amador MD 08/21/2016 04:58 P; Radiology Order: ECG WITH READING ER PHYS Test: ECG WITH READING ER PHYS REASON FOR EXAMINATION: SHORTNESS OF BREATH(REPEAT EKG AT 1900); Stationary ECG Study; [facility] - ED; ; Test Date: 2016-08-21; Pat Name: YENNY ESCUDERO Department:; Room: -; Gender: F [employer]: jv; : 1980 Requested By: MARIA GUADALUPE Goodwin; Order Number: [id number] Reading MD: Geovanna Madera; Measurements; Intervals [place]; Rate: 72 P: 78; AK: 176 QRS: 70; QRSD: 77 T: 46; QT: 364; QTc: 400; Interpretive Statements; SINUS RHYTHM; NSTTW ABNORMALITY; DECREASED RATE 15:51; Electronically Signed On 08-21-2016 21:40:46 EST by Geovanna Madera; Outcome: 18:15 Discharge Assessment: Patient awake, alert and oriented x 3. No cognitive and/or cjh functional deficits noted. Patient verbalized understanding of disposition instructions. patient administered narcotics - no. The following High Risk Discharge criteria are identified: None. Discharged to home ambulatory, with family. Condition: good Condition: stable Condition: improved. Discharge instructions given to patient, Instructed on discharge instructions, follow up and referral plans. medication usage, Demonstrated understanding of instructions, medications, Pt was receptive of discharge instructions/ teaching. Prescriptions given X 1. No special radiology studies were completed. Property :Personal belongings accompany Pt. 22:01 Discharge ordered by Provider. mm11 22:23 Patient left the ED. [facility] Signatures: Dispatcher [employer] EDMS Jenae Josi, Bindery Helper Unit lbd Melissa Tasha, Brian Reg gb PastranaJuan ryanew, DO DO mm11 Payal Patnio,RN RN ld5 Kasie Rasheed, MEDICAL OFFICE ADMINISTRATOR MEDICAL OFFICE ADMINISTRATOR ct3 Destiny Cochran dem1 Iliana Mcnulty RN RN [facility] Maria Guadalupe Dumont MD MD fg Beck, Gabriela gjb Vega, Jose, MEDICAL OFFICE ADMINISTRATOR MEDICAL OFFICE ADMINISTRATOR jmv Corrections: (The following items were deleted from the chart) 15:33 15:26 Presenting complaint: Patient states: Burning to mid chest up into throat ld5 starting around 1400. Walked to sink to get a drink of water and felt like she was going to pass out. Pain started to become sharp and had numbness to bilateral arms ld5 18:19 17:45 General: Appears in no apparent distress, comfortable, Behavior is appropriate [facility] for age, cooperative, pleasant, ambulates to bathroom with steady gait and no assist required, medications provided, denies further needs at present. [facility] 22:23 18:15 Discharge Assessment: Patient awake, alert and oriented x 3. No cognitive and/or [facility] functional deficits noted. Patient verbalized understanding of disposition instructions. patient administered narcotics - yes. Pt provided with safe discharge [facility] Chart Complete MTDD
--- NOTE | 2016-08-23 23:25 | EDDOCDS ---
Physician Documentation [facility] Name: Gwen Calles Age: 36 yrs Sex: Female : 1980 Arrival Date: 08/21/2016 Time: 15:21 Bed 14 Private MD: Disposition: 08/21/16 22:01 Discharged to Home/Self Care. Impression: Chest pain, unspecified - possible allergic reaction. - Condition is Stable. - Discharge Instructions: Panic Attacks, Chest Wall Pain, Food Allergy, Panic Attacks, Yoru-yj-Hciu, Food Allergy, Jacv-cu-Xhkl, Nonspecific Chest Pain. - Prescriptions for Prednisone 20 mg Oral Tablet - take 2 tablet by ORAL route once daily for 5 days; 10 tablet. - Medication Reconciliation, Local Pharmacy Hours form. - [facility] ; When: Call to arrange an appointment; Reason: Continuance of care. Follow up: Soy Celeste MD; When: Call to arrange an appointment; Reason: To establish care. - Problem is an acute exacerbation. - Symptoms are resolved. Historical: - Allergies: no known allergies; - Home Meds: 1. none - PMHx: none; - PSHx: none; - Social history: Smoking status: Patient uses tobacco products, light tobacco smoker. No barriers to communication noted, The patient speaks fluent Kyrgyz, Speaks appropriately for age. - Family history: Not pertinent. - : The pt / caregiver states he / she is not on anticoagulants. Home medication list is obtained from the patient. - Exposure Risk Screening:: None identified. PHYSIOLOGIST: 08/21 15:33 3, Full Term 2, Premature 1, 0, Living 3, LMP 08/19/2016 ld5 Vital Signs: 15:30 BP 140 / 89; Pulse 107; Resp 20; Temp 97.5(TE); Pulse Ox 100% on 2 lpm NC; Weight 70.31 dem1 kg / 155.01 lbs; Height 5 ft. 2 in. (157.48 cm); Pain 5/10; 15:47 Pulse 86 MON; Pulse Ox 97% ; cjh 15:48 BP 132 / 81 (auto/); cjh 15:59 Pulse 96 MON; Pulse Ox 95% ; cjh 15:59 BP 134 / 83 (auto/); cjh 16:16 BP 146 / 71 (auto/); ld5 16:46 Pulse 78 MON; Pulse Ox 97% ; cjh 16:46 BP 122 / 71 (auto/); cjh 17:49 BP 114 / 62 Supine; Pulse 74; ld5 17:49 BP 120 / 76 Sitting; Pulse 82; ld5 17:49 BP 138 / 80 Standing; Pulse 87; ld5 18:15 Pulse 74 MON; Pulse Ox 99% ; cjh 18:15 BP 127 / 73; Pulse 76; Resp 16; Temp 97.1; Pulse Ox 96% ; Pain 0/10; cjh 18:16 BP 119 / 66 (auto/); cjh 18:45 Pulse 74 MON; Pulse Ox 99% ; cjh 18:46 BP 121 / 67 (auto/); cjh 19:15 Pulse 74 MON; Pulse Ox 97% ; cjh 19:16 BP 128 / 75 (auto/); cjh 19:45 Pulse 64 MON; Pulse Ox 97% ; cjh 19:46 BP 132 / 77 (auto/); cjh 20:15 Pulse 64 MON; Pulse Ox 97% ; cjh 20:16 BP 133 / 80 (auto/); cjh 20:46 Pulse 70 MON; Pulse Ox 96% ; cjh 20:46 BP 127 / 76 (auto/); cjh 21:15 Pulse 70 MON; Pulse Ox 96% ; cjh 21:16 BP 124 / 70 (auto/); cjh 21:46 Pulse 74 MON; Pulse Ox 96% ; cjh 21:46 BP 125 / 69 (auto/); cjh 21:48 Pulse 72 MON; Pulse Ox 97% ; cjh 22:05 BP 121 / 73 (auto/); cjh 15:30 Body Mass Index 28.35 (70.31 kg, 157.48 cm) dem1 MDM: 15:36 ECG WITH READING ER PHYS+CARDIAG ordered. EDMS 16:10 Aspirin Chewable Tablet 324 mg PO once ordered. fg 16:10 University Librarian/Pulse Ox/q 30 min VS ordered. fg 16:10 IV Saline Lock ordered. fg 16:10 Rhythm Strip to chart ordered. fg 16:10 Undress patient appropriately for examination ordered. fg 16:12 portable chest Ordered. EDMS 16:12 Basic Metabolic Profile Ordered. EDMS 16:13 CBC with Diff Ordered. EDMS 16:13 Cardiac Injury Profile Ordered. EDMS 16:13 Troponin Ordered. EDMS 16:32 Financial registration complete. gjb 16:39 [place] Payment Agreement was scanned into [employer] and attached to record. gjb 17:34 Repeat EKG (put time details section) ordered. fg 17:34 Cardiac Marker Panel: 1900 Ordered. EDMS 17:34 Troponin: 1900 Ordered. EDMS 17:37 NS 0.9% 1000 ml IV at bolus once ordered. fg 17:37 Strep Screen, Nursing ordered. fg 17:37 Ondansetron 4 mg IVP once ordered. fg 17:37 Orthostatic VS ordered. fg 17:37 Solu-MEDROL 125 mg IVP once ordered. fg 17:37 Famotidine 20 mg IVPB once over 30 mins; dilute in 50mL of NS ordered. fg 17:37 diphenhydrAMINE 25 mg IVP once ordered. fg 17:50 Repeat EKG (put time details section) complete. lbd 18:03 ECG WITH READING ER PHYS ordered. EDMS 18:18 GATS (NEGATIVE STREP SCREEN) Ordered. EDMS 21:16 Basic Metabolic Profile Reviewed. mm11 21:16 CBC with Diff Reviewed. mm11 21:16 Cardiac Injury Profile Reviewed. mm11 21:16 Troponin Reviewed. mm11 21:16 Cardiac Marker Panel: 1900 Reviewed. mm11 21:16 portable chest Reviewed. mm11 08/22 10:26 T-Sheet-- Draft Copy was scanned into [employer] and attached to record. gb 17:03 ECG/EKG was scanned into [employer] and attached to record. gb 17:35 PCR was scanned into [employer] and attached to record. gb Administered Medications: 08/21 16:18 Drug: Aspirin 324 mg [aspirin 81 mg chewable tablet (4 tabs)] Route: PO; [facility] 18:15 Drug: NS 0.9% 1000 ml Route: IV; Rate: bolus; Site: left antecubital; [facility] 18:17 Drug: Ondansetron 4 mg Route: IVP; Site: left antecubital; [facility] 18:17 Drug: Solu-MEDROL 125 mg [Solu-Medrol 500 mg intravenous solution (125 mg)] Route: IVP; [facility] Site: left antecubital; 18:17 Drug: Famotidine 20 mg [famotidine 10 mg/mL intravenous solution] Route: IVPB; Infused [facility] Over: 30 mins; Site: left antecubital; 18:18 Drug: diphenhydrAMINE 25 mg [diphenhydramine 50 mg/mL injection solution (0.5 mL)] cjh Route: IVP; Site: left antecubital; Signatures: Dispatcher [employer] EDMS Jenae Josi, Community Services Coordinator Unit lbd Tasha Torres, Reg Reg gb Gerry Pastrana, DO mm11 Payal Patino RN RN ld5 Iliana Mcnulty RN RN [facility] Maria Guadalupe Dumont MD MD fg Beck, Gabriela gjb The chart was reviewed and I authenticate all verbal orders and agree with the evaluation and treatment provided.Attachments: 16:39 [place] Payment Agreement gjb 08/22 10:26 T-Sheet-- Draft Copy gb 17:03 ECG/EKG Chart Complete MTDD
--- NOTE | 2016-08-23 23:25 | EDDOCDS ---
Physician Documentation [facility] Name: Gwen Calles Age: 36 yrs Sex: Female : 1980 Arrival Date: 08/21/2016 Time: 15:21 Bed 14 Private MD: Disposition: 08/21/16 22:01 Discharged to Home/Self Care. Impression: Chest pain, unspecified - possible allergic reaction. - Condition is Stable. - Discharge Instructions: Panic Attacks, Chest Wall Pain, Food Allergy, Panic Attacks, Kmun-xn-Klfp, Food Allergy, Piyn-zq-Svua, Nonspecific Chest Pain. - Prescriptions for Prednisone 20 mg Oral Tablet - take 2 tablet by ORAL route once daily for 5 days; 10 tablet. - Medication Reconciliation, Local Pharmacy Hours form. - [facility] ; When: Call to arrange an appointment; Reason: Continuance of care. Follow up: Soy Celeste MD; When: Call to arrange an appointment; Reason: To establish care. - Problem is an acute exacerbation. - Symptoms are resolved. Historical: - Allergies: no known allergies; - Home Meds: 1. none - PMHx: none; - PSHx: none; - Social history: Smoking status: Patient uses tobacco products, light tobacco smoker. No barriers to communication noted, The patient speaks fluent Burundian, Speaks appropriately for age. - Family history: Not pertinent. - : The pt / caregiver states he / she is not on anticoagulants. Home medication list is obtained from the patient. - Exposure Risk Screening:: None identified. 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 2 in. (157.48 cm); Pain 5/10; 15:47 Pulse 86 MON; Pulse Ox 97% ; cjh 15:48 BP 132 / 81 (auto/); cjh 15:59 Pulse 96 MON; Pulse Ox 95% ; cjh 15:59 BP 134 / 83 (auto/); cjh 16:16 BP 146 / 71 (auto/); ld5 16:46 Pulse 78 MON; Pulse Ox 97% ; cjh 16:46 BP 122 / 71 (auto/); cjh 17:49 BP 114 / 62 Supine; Pulse 74; ld5 17:49 BP 120 / 76 Sitting; Pulse 82; ld5 17:49 BP 138 / 80 Standing; Pulse 87; ld5 18:15 Pulse 74 MON; Pulse Ox 99% ; cjh 18:15 BP 127 / 73; Pulse 76; Resp 16; Temp 97.1; Pulse Ox 96% ; Pain 0/10; cjh 18:16 BP 119 / 66 (auto/); cjh 18:45 Pulse 74 MON; Pulse Ox 99% ; cjh 18:46 BP 121 / 67 (auto/); cjh 19:15 Pulse 74 MON; Pulse Ox 97% ; cjh 19:16 BP 128 / 75 (auto/); cjh 19:45 Pulse 64 MON; Pulse Ox 97% ; cjh 19:46 BP 132 / 77 (auto/); cjh 20:15 Pulse 64 MON; Pulse Ox 97% ; cjh 20:16 BP 133 / 80 (auto/); cjh 20:46 Pulse 70 MON; Pulse Ox 96% ; cjh 20:46 BP 127 / 76 (auto/); cjh 21:15 Pulse 70 MON; Pulse Ox 96% ; cjh 21:16 BP 124 / 70 (auto/); cjh 21:46 Pulse 74 MON; Pulse Ox 96% ; cjh 21:46 BP 125 / 69 (auto/); cjh 21:48 Pulse 72 MON; Pulse Ox 97% ; cjh 22:05 BP 121 / 73 (auto/); cjh 15:30 Body Mass Index 28.35 (70.31 kg, 157.48 cm) dem1 MDM: 15:36 ECG WITH READING ER PHYS+CARDIAG ordered. EDMS 16:10 Aspirin Chewable Tablet 324 mg PO once ordered. fg 16:10 Campground Hand/Pulse Ox/q 30 min VS ordered. fg 16:10 IV Saline Lock ordered. fg 16:10 Rhythm Strip to chart ordered. fg 16:10 Undress patient appropriately for examination ordered. fg 16:12 portable chest Ordered. EDMS 16:12 Basic Metabolic Profile Ordered. EDMS 16:13 CBC with Diff Ordered. EDMS 16:13 Cardiac Injury Profile Ordered. EDMS 16:13 Troponin Ordered. EDMS 16:32 Financial registration complete. gjb 16:39 [facility] [place] [facility] Payment Agreement was scanned into [employer] and attached to record. gjb 17:34 Repeat EKG (put time details section) ordered. fg 17:34 Cardiac Marker Panel: 1900 Ordered. EDMS 17:34 Troponin: 1900 Ordered. EDMS 17:37 NS 0.9% 1000 ml IV at bolus once ordered. fg 17:37 Strep Screen, Nursing ordered. fg 17:37 Ondansetron 4 mg IVP once ordered. fg 17:37 Orthostatic VS ordered. fg 17:37 Solu-MEDROL 125 mg IVP once ordered. fg 17:37 Famotidine 20 mg IVPB once over 30 mins; dilute in 50mL of NS ordered. fg 17:37 diphenhydrAMINE 25 mg IVP once ordered. fg 17:50 Repeat EKG (put time details section) complete. lbd 18:03 ECG WITH READING ER PHYS ordered. EDMS 18:18 GATS (NEGATIVE STREP SCREEN) Ordered. EDMS 21:16 Basic Metabolic Profile Reviewed. mm11 21:16 CBC with Diff Reviewed. mm11 21:16 Cardiac Injury Profile Reviewed. mm11 21:16 Troponin Reviewed. mm11 21:16 Cardiac Marker Panel: 1900 Reviewed. mm11 21:16 portable chest Reviewed. mm11 08/22 10:26 T-Sheet-- Draft Copy was scanned into [employer] and attached to record. gb 17:03 ECG/EKG was scanned into [employer] and attached to record. gb 17:35 PCR was scanned into [employer] and attached to record. gb Administered Medications: 08/21 16:18 Drug: Aspirin 324 mg [aspirin 81 mg chewable tablet (4 tabs)] Route: PO; [facility] 18:15 Drug: NS 0.9% 1000 ml Route: IV; Rate: bolus; Site: left antecubital; [facility] 18:17 Drug: Ondansetron 4 mg Route: IVP; Site: left antecubital; [facility] 18:17 Drug: Solu-MEDROL 125 mg [Solu-Medrol 500 mg intravenous solution (125 mg)] Route: IVP; [facility] Site: left antecubital; 18:17 Drug: Famotidine 20 mg [famotidine 10 mg/mL intravenous solution] Route: IVPB; Infused [facility] Over: 30 mins; Site: left antecubital; 18:18 Drug: diphenhydrAMINE 25 mg [diphenhydramine 50 mg/mL injection solution (0.5 mL)] cjh Route: IVP; Site: left antecubital; Signatures: Dispatcher [employer] EDMS Jenae Josi, Chairlift Operator Unit lbd Tasha Torres, Reg Reg gb Gerry Pastrana, DO mm11 Payal Patino RN RN ld5 Iliana Mcnulty RN RN [facility] Maria Guadalupe Dumont MD MD fg Beck, Gabriela gjb The chart was reviewed and I authenticate all verbal orders and agree with the evaluation and treatment provided.Attachments: 16:39 [facility] Payment Agreement gjb 08/22 10:26 T-Sheet-- Draft Copy gb 17:03 ECG/EKG Chart Complete MTDD
== END 2016-08-21 22:23 | disposition home or self-care (01) ==
LOC: M ED 15:21
DX: R07.89 Other chest pain (principal); Z72.0 Tobacco use
CPT/HCPCS: 36415; 71010; 80048; 82550; 82553; 85025; 87880; 93005; 93041; 96374; 96375; 99285; J1200; J2405; J2930

== ENCOUNTER 2019-03-29 19:12 | Emergency (ER) | payer SELFPAY ==
[~2019-03-29] VITALS: Ht 160 cm; Wt 74.7 kg
[2019-03-29 19:55] LABS: BASO # 0.1 10^3/uL (0.0-0.2); BASO % 0.7 % (0.0-1.0); EOS # 0.1 10^3/uL (0.0-0.5); EOS % 1.4 % (0.0-3.0); HEMATOCRIT 43.7 % (36.0-47.0); HEMOGLOBIN 14.3 g/dl (12.0-15.5); LYMPH # 2.3 10^3/uL (1.5-5.0); LYMPH % 27.7 % (24.0-44.0); MEAN CORPUSCULAR HEMOGLOBIN 31.3 pg (27.0-33.0); MEAN CORPUSCULAR HGB CONC 32.7 g/dl (32.0-36.5); MEAN CORPUSCULAR VOLUME 95.6 fl (80.0-96.0); MONO # 0.4 10^3/uL (0.0-0.8); MONO % 4.3 % (0.0-5.0); NEUTROPHILS # 5.5 10^3/uL (1.5-8.5); NEUTROPHILS % 65.8 % (36.0-66.0); PLATELET COUNT, AUTOMATED 442 10^3/uL (150-450); RED BLOOD COUNT 4.57 10^6/uL (4.00-5.40); WHITE BLOOD COUNT 8.4 10^3/uL (4.0-10.0)
[2019-03-29] MEDS ORDERED: NS 1,000 ML IV ONE (20:15)
[2019-03-29] MEDS ORDERED: KETOROLAC 30 MG/ML VIAL (J1885) IV ONE (20:15)
[2019-03-29 20:23] LABS: ALT/SGPT 47 U/L (12-78); BILIRUBIN,DIRECT < 0.1 MG/DL (0.0-0.2); BILIRUBIN,TOTAL 0.3 MG/DL (0.2-1.0); BLOOD UREA NITROGEN 15 MG/DL (7-18); CALCIUM LEVEL 9.1 MG/DL (8.5-10.1); CARBON DIOXIDE LEVEL 26 MEQ/L (21-32); CHLORIDE LEVEL 105 MEQ/L (98-107); CREATININE FOR GFR 0.79 MG/DL (0.55-1.30); GLOMERULAR FILTRATION RATE > 60.0 (>60); GLUCOSE, FASTING 116 MG/DL (70-100); LIPASE 165 U/L (73-393); POTASSIUM SERUM 4.5 MEQ/L (3.5-5.1); SODIUM LEVEL 138 MEQ/L (136-145); TOTAL PROTEIN 7.8 GM/DL (6.4-8.2)
--- NOTE | 2019-03-29 21:33 | REPVR ---
PROCEDURE INFORMATION: Exam: CT Abdomen and Pelvis Without Contrast Exam date and time: 03/29/2019 8:55 PM Clinical history: 38 years old, female; Abdominal pain; Generalized; Additional info: R colic TECHNIQUE: Imaging protocol: Computed tomography of the abdomen and pelvis without contrast. Axial, coronal and sagittal reformatted images were created and reviewed. Radiation optimization: All CT scans at this facility use at least one of these dose optimization techniques: automated exposure control; mA and/or kV adjustment per patient size (includes targeted exams where dose is matched to clinical indication); or iterative reconstruction. COMPARISON: No relevant prior studies available. FINDINGS: Mediastinum: Small hiatal hernia. Liver: Mild hepatic steatosis. Gallbladder and bile ducts: No radiodense gallstones. No biliary ductal dilatation. Pancreas: Unremarkable. Spleen: Unremarkable. Adrenals: Unremarkable. Kidneys and ureters: No mass. No radiodense calculi. No hydronephrosis. Stomach and bowel: Scattered colonic diverticula without evidence of diverticulitis. No obstruction. No bowel wall thickening. No pneumatosis. Appendix: Normal. Intraperitoneal space: No free fluid. No organized fluid collection. No free air. Vasculature: Unremarkable. No aneurysm. Lymph nodes: No pathologically enlarged lymph nodes. Bladder: Unremarkable. Reproductive: Unremarkable. Bones/joints: No acute osseous abnormality. Soft tissues: Unremarkable. IMPRESSION: 1. No CT evidence of acute intra-abdominal or pelvic pathology. 2. Additional findings, as above. Electronically signed by: Frandy Gustafson On 03/29/2019 21:33:40 PM
[2019-03-29 23:22] VITALS: BP 112/76
[2019-03-29] MEDS ORDERED: METHOCARBAMOL 1,000 MG/10 ML VIAL (J2800) IV ONE (23:30)
[2019-03-29] MEDS ORDERED: ROBA750T4 PO (23:39)
== END 2019-03-30 00:15 | disposition home or self-care (01) ==
LOC: M ED 19:12
DX: M62.830 Muscle spasm of back (principal); F17.210 Nicotine dependence, cigarettes, uncomplicated
CPT/HCPCS: 74176; 80048; 80076; 81001; 83690; 84702; 85025; 96361; 96374; 96375; 99284; J1885; J2800

== ENCOUNTER 2019-08-06 23:45 | Emergency (ER) | payer SELFPAY ==
[~2019-08-06] VITALS: Ht 157.5 cm; Wt 70.5 kg
[~2019-08-06 23:45] MED LIST: ROBA750T4 PO
[2019-08-06 23:54] VITALS: BP 131/81
[2019-08-07] MEDS ORDERED: AMOX500C PO (00:30)
[2019-08-07] MEDS ORDERED: AMOXICILLIN 500 MG CAP PO ONE (00:30)
== END 2019-08-07 00:53 | disposition home or self-care (01) ==
LOC: M ED 23:45
DX: J01.90 Acute sinusitis, unspecified (principal); F17.210 Nicotine dependence, cigarettes, uncomplicated

== ENCOUNTER 2020-02-26 23:00 | Emergency (ER) | payer MEDICAID, SELFPAY ==
[~2020-02-26 23:00] MED LIST changes: +AMOX500C PO
[2020-02-27] MEDS ORDERED: KETOROLAC 60MG 2ML VIAL ONE (02:09)
[2020-04-08 09:27] LABS: AMORPHOUS SEDIMENT SMALL (NEGATIVE); APPEARANCE, URINE HAZY (CLEAR); BACTERIA, URINE AUTO NEGATIVE (NEGATIVE); BILIRUBIN, URINE AUTO NEGATIVE (NEGATIVE); BLOOD, URINE BLOOD 3+ (NEGATIVE); COLOR, URINE YELLOW (YELLOW); GLUCOSE, URINE (UA) AUTO 3+ mg/dL (NEGATIVE); KETONE, URINE AUTO TRACE mg/dL (NEGATIVE); LEUKOCYTE ESTERASE, URINE AUTO NEGATIVE (NEGATIVE); MUCUS, URINE SMALL (NEGATIVE); NITRITE, URINE AUTO NEGATIVE (NEGATIVE); PROTEIN, URINE AUTO NEGATIVE (NEGATIVE); RBC, URINE AUTO 3 /HPF (0-3); SPECIFIC GRAVITY URINE AUTO 1.026 (1.002-1.035); SQUAMOUS EPITHELIAL CELL UR AU 4 /HPF (0-6); UROBILINOGEN, URINE AUTO 0.2 mg/dL (0.0-2.0); WBC, URINE AUTO 2 /HPF (0-3)
== END 2020-02-27 03:49 | disposition home or self-care (01) ==
LOC: M ED 23:00
DX: G89.29 Other chronic pain (principal); M54.9 Dorsalgia, unspecified
CPT/HCPCS: 74176; 81001; 87086; 96372; 99283; J1885

== ENCOUNTER 2020-05-07 21:59 | Emergency (ER) | payer OTHER, SELFPAY ==
[~2020-05-07] VITALS: Ht 160 cm; Wt 77.3 kg
[2020-05-07 22:32] LABS: BASO # 0.1 10^3/uL (0.0-0.2); BASO % 0.6 % (0.0-1.0); EOS # 0.2 10^3/uL (0.0-0.5); EOS % 1.9 % (0.0-3.0); HEMATOCRIT 40.6 % (36.0-47.0); HEMOGLOBIN 12.9 g/dl (12.0-15.5); LYMPH # 2.8 10^3/uL (1.5-5.0); LYMPH % 26.2 % (24.0-44.0); MEAN CORPUSCULAR HEMOGLOBIN 29.9 pg (27.0-33.0); MEAN CORPUSCULAR HGB CONC 31.8 g/dl (32.0-36.5); MONO # 0.6 10^3/uL (0.0-0.8); MONO % 5.3 % (0.0-5.0); NEUTROPHILS % 65.8 % (36.0-66.0); PLATELET COUNT, AUTOMATED 382 10^3/uL (150-450); RED BLOOD COUNT 4.32 10^6/uL (4.00-5.40); WHITE BLOOD COUNT 10.7 10^3/uL (4.0-10.0)
[2020-05-07 22:58] LABS: BLOOD UREA NITROGEN 18 MG/DL (7-18); CALCIUM LEVEL 8.8 MG/DL (8.5-10.1); CARBON DIOXIDE LEVEL 26 MEQ/L (21-32); CHLORIDE LEVEL 106 MEQ/L (98-107); CK-MB VALUE MASS < 1.0 NG/ML (<3.6); CPK CREATINE PHOSPHOKINASE 134 U/L (26-192); CREATININE FOR GFR 1.22 MG/DL (0.55-1.30); GLOMERULAR FILTRATION RATE 52.5 (>60); GLUCOSE, FASTING 209 MG/DL (70-100); HCG, SERUM QUANTITATIVE < 1.0 MIU/ML; LIPASE 205 U/L (73-393); MB/CK RELATIVE INDEX 0.75 (< OR =4); POTASSIUM SERUM 3.8 MEQ/L (3.5-5.1); SODIUM LEVEL 139 MEQ/L (136-145); TROPONIN I < 0.02 NG/ML (< 0.10)
--- NOTE | 2020-05-07 23:25 | REPVR ---
PROCEDURE INFORMATION: Exam: XR Chest, 2 Views Exam date and time: 05/07/2020 11:18 PM Age: 39 years old Clinical indication: Shortness of breath; Additional info: Chest pain TECHNIQUE: Imaging protocol: XR of the chest Views: 2 views. COMPARISON: CR Chest, 1 view 08/21/2016 4:19 PM FINDINGS: Lungs: The lungs are unchanged. There are no interval infiltrates. Pleural space: Unremarkable. No pleural effusion. No pneumothorax. Heart/Mediastinum: The heart and mediastinum are unchanged. Bones/joints: Unremarkable. IMPRESSION: Stable essentially negative chest since 08/21/2016. Electronically signed by: Derrell Tyler On 05/07/2020 23:25:17 PM
[2020-05-08 00:01] VITALS: BP 125/64
--- NOTE | 2020-05-09 07:55 | ECGEPIP ---
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
== END 2020-05-08 00:11 | disposition home or self-care (01) ==
LOC: M ED 21:59
DX: R07.9 Chest pain, unspecified (principal); R42 Dizziness and giddiness; F17.200 Nicotine dependence, unspecified, uncomplicated

== ENCOUNTER 2021-02-13 20:34 | Emergency (ER) | payer OTHER ==
[~2021-02-13] VITALS: Ht 157.5 cm; Wt 71.8 kg
[2021-02-13] MEDS ORDERED: METF-839 PO (22:12)
[2021-02-13 23:14] LABS: HEMOGLOBIN 12.7 g/dl (12.0-15.5); MEAN CORPUSCULAR HEMOGLOBIN 30.4 pg (27.0-33.0); MEAN CORPUSCULAR HGB CONC 32.6 g/dl (32.0-36.5); MEAN CORPUSCULAR VOLUME 93.3 fl (80.0-96.0); PLATELET COUNT, AUTOMATED 416 10^3/uL (150-450); RED BLOOD COUNT 4.18 10^6/uL (4.00-5.40); WHITE BLOOD COUNT 8.6 10^3/uL (4.0-10.0)
[2021-02-13] MEDS ORDERED: diphenhydrAMINE 50MG/ML VIAL (J1200) IV STA (23:14)
[2021-02-13] MEDS ORDERED: KETOROLAC 30 MG/ML 1ML VIAL IV ONE (23:15)
[2021-02-13] MEDS ORDERED: METOCLOPRAMIDE INJ 10MG/2ML VIAL (J2765 PER 1) IV ONE (23:15)
[2021-02-13] MEDS ORDERED: NS 1,000 ML IV ONE (23:15)
[2021-02-13 23:46] LABS: BLOOD UREA NITROGEN 9 MG/DL (7-18); CALCIUM LEVEL 8.5 MG/DL (8.5-10.1); CARBON DIOXIDE LEVEL 29 MEQ/L (21-32); CHLORIDE LEVEL 105 MEQ/L (98-107); CREATININE FOR GFR 0.64 MG/DL (0.55-1.30); FREE THYROXINE INDEX 1.9 % (1.3-4.8); GLOMERULAR FILTRATION RATE > 60.0 (>60); GLUCOSE, FASTING 98 MG/DL (70-100); POTASSIUM SERUM 3.8 MEQ/L (3.5-5.1); SODIUM LEVEL 138 MEQ/L (136-145); T UPTAKE 33 % (30-39); THYROXINE (T4) 5.9 UG/DL (4.5-12.0)
[2021-02-14 00:23] LABS: MONO REFLEX EBV COMP NEGATIVE (NEGATIVE)
[2021-02-14 00:32] LABS: RSV AMPLIFICATION NEGATIVE (NEGATIVE)
[2021-02-14 00:34] LABS: ERYTHROCYTE SEDIMENTATION RATE 28 mm/hr (0-20)
--- NOTE | 2021-02-14 01:04 | REPVR ---
PROCEDURE INFORMATION: Exam: CT Head Without Contrast Exam date and time: 02/14/2021 12:09 AM Age: 40 years old Clinical indication: Pain; Headache not specified; Additional info: Foggy, lethargy, MISTRY TECHNIQUE: Imaging protocol: Computed tomography of the head without contrast. Axial and coronal reformatted images were created and reviewed. Radiation optimization: All CT scans at this facility use at least one of these dose optimization techniques: automated exposure control; mA and/or kV adjustment per patient size (includes targeted exams where dose is matched to clinical indication); or iterative reconstruction. COMPARISON: No relevant prior studies available. FINDINGS: Brain: No CT evidence of acute intracranial hemorrhage or acute territorial infarction. No significant mass effect or midline shift. Basal cisterns patent. Cerebral ventricles: Normal in size and configuration. Paranasal sinuses: Unremarkable. No fluid levels. Mastoid air cells: Grossly unremarkable. Bones/joints: No acute osseous abnormality. Soft tissues: Grossly unremarkable. IMPRESSION: No CT evidence of acute intracranial pathology. Electronically signed by: Frandy Gustafson On 02/14/2021 01:03:51 AM
[2021-02-14 02:08] VITALS: BP 103/71
[2021-02-15 17:07] LABS: Lyme Disease IgG/IgM Antibodie <0.91 ISR (0.00-0.90); Lyme Disease IgM Ab Quantitati <0.80 index (0.00-0.79)
[2021-02-15 18:11] LABS: EBV VIRAL CAPSID AG IgG >600.0 U/mL (0.0-17.9); EBV VIRAL CAPSID AG IgM <36.0 U/mL (0.0-35.9)
== END 2021-02-14 02:12 | disposition home or self-care (01) ==
LOC: M ED 20:34
DX: R51.9 Headache, unspecified (principal); R42 Dizziness and giddiness; E11.9 Type 2 diabetes mellitus without complications; Z79.84 Long term (current) use of oral hypoglycemic drugs
CPT/HCPCS: 70450; 80048; 81001; 84436; 84443; 84479; 84702; 85027; 85652; 86308; 86617; 86664; 86665; 87086; 87631; 96361; 96374; 96375; 99284; J1200; J1885; J2765